=== PATIENT | male | born 1965 | race Caucasian/White ===

== ENCOUNTER 2017-11-05 08:08 | Day surgery (SDC) | payer BC ==
[~2017-11-05 08:08] MED LIST: LIDOCAINE 1% MDV 20ML VIAL SQ; LR 1,000 ML IV
[2017-11-05] MEDS: VANCOMYCIN HCL 1,000 MG, VIAL MATE ADAPTER 1 EACH in D5W 250 ML IV ×2 (09:20)
[2017-11-05] MEDS: BUPIVACAINE HCL 0.5% 30 ML VIAL As Ordered ×2 (10:21)
[2017-11-05] MEDS: LIDOCAINE 2% MDV 20 ML VIAL As Ordered ×2 (10:21)
[2017-11-05] MEDS ORDERED: LIDOCAINE 2% INJ 100 MG/5 ML SDV (FOR ANES.) As Ordered ×2 (10:36)
[2017-11-05] MEDS ORDERED: fentaNYL 100 MCG/2 ML INJECTION (J3010) As Ordered ×2 (10:36)
[2017-11-05] MEDS ORDERED: MIDAZOLAM INJ 2 MG/2 ML VIAL (J2250) As Ordered ×2 (10:36)
[2017-11-05] MEDS ORDERED: ONDANSETRON 4MG/2ML VIAL (J2405) As Ordered ×2 (10:36)
[2017-11-05] MEDS ORDERED: dexameTHASONE 4 MG/ML 1ML VIAL (J1100) As Ordered ×2 (10:36)
[2017-11-05] MEDS ORDERED: PROPOFOL 200 MG/20 ML VIAL As Ordered ×6 (10:36→11:11)
[2017-11-05] MEDS: BACITRACIN PWD 50,000 UNITS VIAL As Ordered ×2 (10:45)
[2017-11-05] MEDS: NEOSPORIN GU IRRIG 20 ML VIAL As Ordered ×2 (10:45)
[2017-11-05] MEDS: dexameTHASONE 4 MG/ML 1ML VIAL (J1100) As Ordered ×2 (11:16)
[2017-11-05] MEDS ORDERED: ONDANSETRON 4MG/2ML VIAL (J2405) IV ×2 (11:45)
[2017-11-05] MEDS ORDERED: LR 1,000 ML IV ×2 (11:45)
[2017-11-05] MEDS ORDERED: PERCOCET 5MG/325MG TAB PO ×2 (11:45)
== END 2017-11-05 12:08 | disposition home or self-care (01) ==
LOC: M SDC 08:08
DX: M20.11 Hallux valgus (acquired), right foot (principal); M20.41 Other hammer toe(s) (acquired), right foot; I10 Essential (primary) hypertension; M10.9 Gout, unspecified; Z79.899 Other long term (current) drug therapy
CPT/HCPCS: 28296

== ENCOUNTER → 2020-12-16 | Outpatient (CLI) | payer BC ==
[~2020-12-16] MED LIST changes: -LIDOCAINE 1% MDV 20ML VIAL SQ; +LISI10TA22 PO; -LR 1,000 ML IV; +SIMV20TA22 PO; +ZYLO300T6 PO
== END ==
LOC: M LABSMTC 09:09
PROVIDERS: ATTEND Anesthesiology
DX: Z01.818 Encounter for other preprocedural examination (principal); Z11.52 Encounter for screening for COVID-19

== ENCOUNTER 2020-12-20 06:06 | Day surgery (SDC) | payer BC ==
[~2020-12-20] VITALS: Ht 175.3 cm; Wt 86.2 kg
[~2020-12-20 06:06] MED LIST changes: +ALLO300T2 PO; +LIDOCAINE 1% MDV 20ML VIAL SQ PRN; +LR 1,000 ML IV ONE; +VANCOMYCIN HCL 1,000 MG, VIAL MATE ADAPTER 1 EACH in NS 250 ML IV ONE
[2020-12-20] MEDS ORDERED: VANCOMYCIN 1000MG/20ML VIAL As Ordered ONE (06:27)
[2020-12-20] MEDS ORDERED: LIDOCAINE 2% MDV 20ML VIAL As Ordered ONE (06:49)
[2020-12-20] MEDS ORDERED: NEOSPORIN GU IRRIG 20 ML VIAL As Ordered ONE (06:50)
[2020-12-20] MEDS ORDERED: dexameTHASONE 4 MG/ML 1ML VIAL (J1100 PER 1MG) As Ordered ONE (06:50)
[2020-12-20] MEDS ORDERED: BUPIVACAINE HCL 0.5% 30 ML VIAL As Ordered ONE (06:50)
[2020-12-20] MEDS ORDERED: fentaNYL 100 MCG/2 ML INJECTION (J3010) As Ordered ONE (07:11)
[2020-12-20] MEDS ORDERED: LIDOCAINE 2% 100MG/5ML SDV (FOR ANES.) As Ordered ONE (07:11)
[2020-12-20] MEDS ORDERED: propofoL 500 MG/50 ML VIAL As Ordered ONE (07:11)
[2020-12-20] MEDS ORDERED: MIDAZOLAM INJ 2MG/2ML VIAL (J2250 PER 1MG) As Ordered ONE (07:11)
[2020-12-20] MEDS ORDERED: GENTAMICIN SULF 80MG/2ML VIAL As Ordered ONE (07:19)
[2020-12-20] MEDS ORDERED: propofoL 200 MG/20 ML VIAL As Ordered ONE ×2 (08:36→09:14)
--- NOTE | 2020-12-20 10:31 | REP ---
INDICATION: POST OP COMPARISON: None. TECHNIQUE: AP, lateral, oblique portable views of the right foot FINDINGS: Patient is status post surgical procedures involving the 1st proximal phalanx and 2nd toe with satisfactory alignment and overlying postsurgical changes noted. IMPRESSION: Baseline examination for procedures involving 1st and 2nd toes. <Electronically signed by Marito Alvarez > 12/20/20 1028
[2020-12-20 10:55] VITALS: BP 161/92
--- NOTE | 2020-12-20 12:31 | RO ---
OPERATIVE NOTE DATE OF OPERATION: 12/20/2020 PREOPERATIVE DIAGNOSES: 1. Recurrent hallux valgus deformity, right foot. 2. Hammertoe deformity second toe of right foot. POSTOPERATIVE DIAGNOSES: 1. Recurrent hallux valgus deformity, right foot. 2. Hammertoe deformity second toe of right foot. SURGEON: MARIO ALBERTO DOS SANTOS DPM MILLER WOOD FLOUR: None. ANESTHESIA: Local MAC. IRRIGATION: Dilute gentamicin solution. HEMOSTASIS: Ankle pneumatic tourniquet at 200 mmHg for 102 minutes. HARDWARE UTILIZED: Arthrex staple 9-wide x 7-long and a 0.062 K-wire. Procedures performed: 1. Distal Mayco Bunionectomy with staple fixation right foot 2. Proximal interphalangeal joint arthroplasty with wire fixation, right foot 3. Dorsal capsulotomy second metatarsophalangeal joint, right foot DESCRIPTION OF OPERATION: On 12/20/2020, this 55-year-old white male was taken from his hospital room to the operating room and placed on the operating room table in the supine position. Following the induction of IV sedation, local and regional anesthesia, the right lower extremity was prepped and draped in the usual aseptic manner. Distal Mayco Bunionectomy with staple fixation right foot: Attention was directed to the patient's right foot. There was noted to be a previous linear cicatrix over the first metatarsophalangeal joint. This cicatrix was utilized and an incision measuring approximately 8 cm in length was made over the first metatarsophalangeal joint. The incision was deepened in the subcutaneous tissues and all crossing venous tributaries were identified, underscored, clamped, cut, ligated or electrocoagulated as necessary. Dissection was carried down to the level of the foot where a periosteal capsular incision was made in the same plane as the original skin incision. Capsule and periosteal structures were dissected dorsally, medially, and laterally. A 3.0-mm screw was identified in the first metatarsal and this was removed. Dissection was carried into the intermetatarsal space where dissection was carried down to the level of the fibular sesamoid. The fibular sesamoid was released and a lateral capsulotomy was performed on the first metatarsophalangeal joint. Attention was then directed to the patient's distal aspect of the toe where a wedge-shaped distal Mayco osteotomy was performed. The wedge was noted on the medial aspect of the bone, reducing the hallux valgus interphalangeus deformity. The staple utilized was a 9-wide x 7-long and it was proximal to the interphalangeal joint with good [id number] contact. The wound was flushed with copious amounts of dilute Bacitracin, neomycin, and polymyxin B solution. The incision was closed utilizing 2-0 Mersilene in a simple interrupted type fashion. Subcutaneous tissues were coapted and maintained using 3-0 Monocryl in a simple interrupted type fashion. The skin incisions were coapted and maintained utilizing 3-0 nylon in a simple interrupted and horizontal mattress type fashion. Attention was then directed to the patient's second toe. The following procedure was performed. Proximal interphalangeal joint arthroplasty, second toe, right foot. Attention was directed to the second toe. A 2-cm incision was placed over the second toe over a previous incision. The incision was deepened in the subcutaneous tissue and all crossing venous tributaries were identified, underscored, clamped, cut, ligated or electrocoagulated as necessary. A Z-plasty tendon lengthening was performed and the extensor expansion and garcia was released. Z-plasty tendon lengthening was performed of the extensor tendon to the second toe. The medial and lateral collateral ligaments were sharply dissected and there was noted to be exuberant bone formation at the proximal phalanx area. This was then osteotomized from [id number] and extirpated from the wound. The wound was flushed with copious amounts of dilute Bacitracin, neomycin, and polymixin B solution. The following procedure was then performed. Second metatarsophalangeal joint capsulotomy. A linear dorsal capsulotomy was performed at the second metatarsophalangeal joint. Utilizing a metatarsal elevator, the plantar plate was released. Attention was then directed to the second toe ,where utilizing a 0.062 wire, a wire was driven through the middle and distal phalanxes, retrograded into the proximal phalanx and held in a slightly overcorrected plantar and lateral position. The wire was driven across the metatarsophalangeal joint. The wire was bent and a protective cap was placed at the distal end of the pin. Attention was directed to its closure, where the extensor tendon was coapted and maintained with 4-0 Monocryl in a simple interrupted type fashion with a [id number] repair. The skin was coapted and maintained with 3-0 nylon in simple interrupted type fashion. Upon the completion of the surgical procedure, 4 mg of dexamethasone sodium phosphate was instilled proximal to the surgical site. Attention was directed toward bandaging. Sterile compressive bandage was applied consisting of Adaptic, 4 x 4s, 4 x 4 splints, Jemal, Kerlix, and Coban. Ankle pneumatic tourniquet was rapidly deflated and instantaneous capillary refilling time was noted digits 1-5 in patient's right foot. The patient apparently tolerated the surgical procedure well and was taken from the OR to the recovery room for further monitoring by the anesthesia department. Surgical specimens removed during the procedure were sent to pathology for gross examination. Postoperative instructions were given upon discharge. KENNY
== END 2020-12-20 10:55 | disposition home or self-care (01) ==
LOC: M SDC 06:06
PROVIDERS: ATTEND Podiatrist
DX: M20.11 Hallux valgus (acquired), right foot (principal); M20.41 Other hammer toe(s) (acquired), right foot; M79.671 Pain in right foot; M20.61 Acquired deformities of toe(s), unspecified, right foot; I10 Essential (primary) hypertension; E78.5 Hyperlipidemia, unspecified; Z88.0 Allergy status to penicillin; K76.0 Fatty (change of) liver, not elsewhere classified; Z87.891 Personal history of nicotine dependence; M10.9 Gout, unspecified; Z79.899 Other long term (current) drug therapy
CPT/HCPCS: 28270; 28285; 28298; 73630; 76000; 88300; C1713; J1100; J1580; J2250; J3010; J3370